=== PATIENT | male | born 1965 | race Caucasian/White ===

== ENCOUNTER 2016-10-19 10:12 | Observation (INO) | payer BC ==
[2016-10-19] MEDS ORDERED: diPHENhydraMINE PO* 25 MG ONE (10:55)
[2016-10-19] MEDS ORDERED: Diazepam TAB(*) 5 MG ONE (10:55)
[2016-10-19] MEDS ORDERED: fentaNYL* 50 MCG/ML 2 ML VIAL (100 MCG VIAL) ONE (10:59)
[2016-10-19] MEDS ORDERED: Midazolam* 1 MG/ML 5 ML VIAL (5 MG) ONE (11:00)
[2016-10-19] MEDS ORDERED: Heparin 2 UNITS/ML IVPREMIX* 3,000 ML IV ONE (11:00)
[2016-10-19] MEDS ORDERED: Lidocaine 1% INJ* 10 MG/ML 30 ML SDV ONE (11:01)
[2016-10-19] MEDS ORDERED: Iohexol 350 (CONTRAST) 200 ML MDV IV ONE (11:01)
[2016-10-19] MEDS ORDERED: Heparin 2 UNITS/ML IVPREMIX* 1,000 ML IV ONE (11:51)
[2016-10-19] MEDS ORDERED: Bivalirudin(*) 250 MG VIAL ONE (12:00)
[2016-10-19] MEDS ORDERED: nitroGLYCERIN DRIP* 250 ML ONE (12:00)
[2016-10-19] MEDS ORDERED: Nitroglycerin TAB 0.4 MG* 0.4 MG TAB SL PRN (12:54)
[2016-10-19] MEDS ORDERED: NS 0.9% 1000 ML* 1,000 ML IV SCH (13:00)
[2016-10-19] MEDS ORDERED: Ondansetron INJ* 2 MG/ML VIAL IV PRN (13:04)
[2016-10-19] MEDS ORDERED: oxyCODONE/Acetamin 5/325 MG* TAB PO PRN (13:04)
[2016-10-19] MEDS ORDERED: Docusate CAP* 100 MG PO PRN (13:04)
[2016-10-19] MEDS ORDERED: Zolpidem TAB* 5 MG PO PRN (13:04)
[2016-10-19] MEDS ORDERED: Acetaminophen TAB* 325 MG PO PRN (13:04)
[2016-10-19] MEDS ORDERED: ALPRAZolam TAB* 0.25 MG PO PRN (13:09)
[2016-10-19] MEDS: fentaNYL* 50 MCG/ML 2 ML VIAL (100 MCG VIAL) IV PRN ×2 (19:05→20:45)
[2016-10-19] MEDS: Ticagrelor* 90 MG TAB PO SCH (20:44)
[2016-10-19] MEDS ORDERED: Metoprolol Succinate XL TAB* 50 MG PO SCH (21:00)
[2016-10-19] MEDS ORDERED: Atorvastatin* 40 MG TAB PO SCH (21:00)
[2016-10-19] MEDS ORDERED: Isosorbide Mononitrate ER TAB* 30 MG PO SCH (21:00)
[2016-10-20 04:19] LABS: Hematocrit 43 % (42-52); Hemoglobin 14.6 g/dl (14.0-18.0); Mean Corpuscular HGB Conc 34 g/dl (31-36); Mean Corpuscular Hemoglobin 31 pg (27-31); Mean Corpuscular Volume 91 fL (80-94); Mean Platelet Volume 9 um3 (7.4-10.4); Red Blood Count 4.77 10^6/ul (4.0-5.4); Red Cell Distribution Width 13 % (10.5-15); White Blood Count 9.2 10^3/ul (3.5-10.8)
[2016-10-20 04:32] LABS: Albumin 3.9 g/dL (3.2-5.2); BUN/Creatinine Ratio 13.5 (8-20); Calcium 9.2 mg/dL (8.6-10.3); EGFR African American 105.8 (>60); EGFR Non-African American 82.3 (>60); Globulin 2.3 g/dL (2-4); Total Bilirubin 1.1 mg/dL (0.2-1.0); Total Protein 6.2 g/dL (6.4-8.9)
[2016-10-20] MEDS ORDERED: Atorvastatin* 80 MG TAB ONE (08:38)
[2016-10-20] MEDS: Ticagrelor* 90 MG TAB PO SCH (08:43)
--- NOTE | 2016-10-20 08:49 | ECHO ---
Patient: RASTA SOLIZ [facility] Rec#: [id number] : 1965 Date: 10/20/2016 Age: 50y Height: 177.8 cm / 70.0 in Weight: 95.25 kg / 209.9 lbs Sex: M BSA: 2.13 Room#: [facility] Admit Date#: 10/18/2016 Type: Inpatient Referring: Desmond Rangel MD Reading: Desmond Rangel MD Copying Machine Repairer: Christie Humphrey RDCS CC: Ervin Moreno MD Transthoracic Echocardiogram Indication: CAD BP: 93/53 HR: 75 Rhythm: Bradycardia Findings History: S/P PCI 10/18/16,former smoker,angina. Technical Comments: The study quality is good. Completed at 0825. Left Ventricle: The left ventricular chamber size is normal. Global left ventricular wall motion and contractility are within normal limits. There is normal left ventricular systolic function. The estimated ejection fraction is 60-65%. Normal left ventricular diastolic filling is observed. Left Atrium: The left atrium is slightly dilated. Right Ventricle: The right ventricular cavity size is normal. The right ventricular global systolic function is normal. Right Atrium: The right atrium is slightly dilated. Aortic Valve: The aortic valve is trileaflet. There is no evidence of aortic valve thickening. There is no evidence of aortic regurgitation. There is no evidence of aortic stenosis. Mitral Valve: The mitral valve leaflets are mildly thickened. There is a trace of mitral regurgitation. There is no evidence of mitral stenosis. Tricuspid Valve: The tricuspid valve leaflets are normal. There is no evidence of tricuspid valve regurgitation. There is no tricuspid stenosis. Pulmonic Valve: The pulmonic valve appears normal. There is no evidence of pulmonic regurgitation. There is no pulmonic stenosis. Pericardium: The pericardium appears normal. Aorta: There is mild dilatation of the ascending aorta. There is no dilatation of the aortic arch. There is no dilation of the aortic root. Pulmonary Artery: The main pulmonary artery appears normal. Venous: The inferior vena cava appears normal in size. There is a greater than 50% respiratory change in the inferior vena cava dimension. Conclusions There is normal left ventricular systolic function. The estimated ejection fraction is 60-65%. Normal left ventricular diastolic filling is observed. There is a trace of mitral regurgitation. There is mild dilatation of the ascending aorta. No reports of prior studies offered for comparison Measurements Name Value Normal Range RVIDd (AP) 2D 3.3 cm (0.9 - 2.6) RVDdMajor (2D) 3.8 cm (2.2 - 4.4) RAd ISD 4CH 5.2 cm (3.4 - 4.9) RA (A4C)W 4.4 cm (2.9 - 4.6) IVSd (2D) 1.1 cm (0.6 - 1) LVPWd (2D) 1 cm (0.6 - 1) LVIDd (2D) 5 cm (3.6 - 5.4) LVIDs (2D) 3.5 cm - LV FS (2D) 30 % (25 - 45) Aortic Annulus 2 cm (1.4 - 2.6) Ao root diameter (2D) 3.4 cm (2.1 - 3.5) Ascending Ao 3.6 cm (2.1 - 3.4) Aortic arch 3.4 cm (1.8 - 3.4) Descending Ao 0.5 cm - LA dimension (AP) 2D 4 cm (2.3 - 3.8) LAd ISD 4CH 5.3 cm (2.9 - 5.3) LA ISD 4CH W 4 cm (2.5 - 4.5) Name Value Normal Range LA ESV SP 4CH (A/L) 43 ml - LA ESV SP 2CH (A/L) 52 ml - LA ESV BP (A/L) 47 ml - LA ESV BP (A/L) index 22.27 ml/m2 - LA ESV SP 4CH (MOD) 39 ml - LA ESV SP 2CH (MOD) 50 ml - Name Value Normal Range MV E-wave Vmax 0.7 m/sec - MV deceleration time 242 msec - MV A-wave Vmax 0.6 m/sec - MV E:A ratio 1.11 ratio - LV septal e' Vmax 0.07 m/sec - LV lateral e' Vmax 0.13 m/sec - LV E:e' septal ratio 5.38 ratio - LV E:e' lateral ratio 10 ratio - Name Value Normal Range AV Vmax 1.8 m/sec - AV VTI 36.3 cm - AV peak gradient 13.68 mmHg - AV mean gradient 6.12 mmHg - LVOT Vmax 1.5 m/sec - LVOT VTI 32.5 cm - LVOT peak gradient 9.58 mmHg - LVOT mean gradient 3.77 mmHg - Name Value Normal Range IVC diameter 1.7 cm - Name Value Normal Range PV Vmax 1.2 m/sec - PV peak gradient 5.34 mmHg -
[2016-10-20] MEDS ORDERED: amLODIPine TAB* 5 MG PO SCH (09:00)
[2016-10-20] MEDS ORDERED: Aspirin EC Low Dose* 81 MG TAB.EC PO SCH (09:00)
[2016-10-20 09:07] VITALS: BP 117/76
--- NOTE | 2016-10-20 22:57 | CATH ---
CC: Ervin Moreno MD CARDIAC CATHETERIZATION AND INTERVENTIONAL REPORT: DATE OF PROCEDURE: 10/19/16 INDICATION FOR THE PROCEDURE: The patient with a staged intervention into the left anterior descending artery with the presence of significant stenotic coronary artery disease following reconstitution of totally occluded right coronary artery at [facility]. PROCEDURE: The procedure was coronary arteriography, balloon angioplasty and placement of a 3.5 x 28 mm long Synergy drug-eluting stent postdilated proximally to 3.6 to 3.7 cm. PROCEDURE IN DETAIL: The patient was interviewed and examined in the office where the risks and benefits were again explained to him of the procedure, he understood them and wished to proceed. He was brought to the cardiovascular laboratory, where a formal time-out was performed. The patient was prepped and draped in sterile fashion. The decision was made to try to use the left groin area as he had the right radial artery and the right femoral artery accessed multiple times in the past. The left groin area was anesthetized with 1% lidocaine. The left femoral artery was cannulated and because of marked tortuosity, the decision was made to place a 7-Peruvian super arrow-flex sheath. Coronary arteriography was then performed utilizing a 5-Peruvian 4 curve right coronary catheter. Of note, attempts were then made to try to advance a VL 3.5 curve 6-Peruvian guide catheter as well as 6-Peruvian FL4 curve guide catheter. Because of the marked tortuosity, catheter advancement through the sheath was met with significant difficulty and as such, the decision was made to abort attempting the left femoral artery approach. The right femoral artery area was anesthetized with 1% lidocaine. The right femoral artery was cannulated and a 6.5 sheath was placed. Guiding views were then obtained utilizing the VL 3.5 curve guide catheter. The decision was then made to intervene into the left anterior descending artery. The patient received an Angiomax bolus. He already had aspirin and Brilinta. Angiomax drip was started. A 0.014 All Star wire was advanced down the left anterior descending artery and balloon angioplasty was performed to the distal lesion with a 2.5 x 12 mm long NC Emerge balloon and the proximal lesion with a 3.25 x 12 mm long Emerge balloon. Following this , the 3.5 x 28 mm stent was deployed with postdeployment inflations to the proximal and mid portion made with a 3.5 x 12 mm Long NC Emerge balloon. Following this, the artery was assessed for result in multiple views. Following this, an injection was made into the right femoral sheath to assess eligibility to utilize the closure device, it was found to be acceptable for this and as such, a 6/7-Peruvian Mynx closure device was deployed with good hemostasis. The left femoral artery sheath was sutured in place to be removed manually in the intensive care unit. The total contrast used was 125 cc of Omnipaque dye. The radiation exposure included 12.3 minutes of fluoro time. The air kerma radiation was 970 milligray. The DAP radiation was 5895 microgray per sq. m. RESULTS: CORONARY ARTERIOGRAPHY: A. Right coronary artery - the right coronary artery was widely patent. Of note, there was area of ulceration seen in its mid portion with a degree of luminal reduction approximately 35%. The distal portion of right coronary artery showed no significant stenosis. B. Left coronary artery - 1. Left main - widely patent. 2. Left anterior descending artery. There was an eccentric lesion seen in the mid portion of left anterior descending artery after the first diagonal branch and first septal filenet p8 developer with haze are noted. In its worst view, this lesion appeared to be as tight as 85% to 90%. Past this point was a second lesion at the second septal filenet p8 developer that appeared to be approximately 70% in its worst view. 3. Circumflex artery - a nondominant vessel supplying multiple obtuse marginal branches. There was a mid lesion of approximately 35% to 40% noted. INTERVENTION INTO MID LEFT ANTERIOR DESCENDING ARTERY: Successful reduction of both 70% mid lesion and more proximal 85% to 90% lesion with balloon angioplasty and placement of a 3.5 x 28 mm long Synergy drug -eluting stent postdilated to 3.6 to 3.7 mm proximally with 0% residual stenosis , CHANI-3 flow and no dissection seen. OVERALL ASSESSMENT: Successful intervention into mid left anterior descending artery as described above. Dual antiplatelet therapy will be continued for a minimum of 30 months given the fact that the patient has had intervention into a chronically totally occluded right coronary artery. Of note, I will review these right coronary artery images with Dr. Felix from [facility] who performed the procedure. Continued aggressive statin therapy will be pursued with increasing the atorvastatin to 80 mg a day. The patient already does not smoke and exercises routinely and his blood pressure is in control. [id number]/[facility] #: [id number] MTDD
== END 2016-10-20 09:15 | disposition home or self-care (01) ==
LOC: CHICATH 10:12 → ICU 13:16
PROVIDERS: ADMIT Internal Medicine Cardiovascular Disease; ATTEND Internal Medicine Cardiovascular Disease
DX: I25.119 Atherosclerotic heart disease of native coronary artery with unspecified angina pectoris (principal); I25.82 Chronic total occlusion of coronary artery; E78.5 Hyperlipidemia, unspecified; I10 Essential (primary) hypertension; F41.9 Anxiety disorder, unspecified; R00.1 Bradycardia, unspecified; Z87.891 Personal history of nicotine dependence; Z88.0 Allergy status to penicillin
CPT/HCPCS: 36415; 80053; 85025; 87641; 93005; 93306; 93454; 96361; 96374; A9270-GY; C1725; C1760; C1769; C1876; C1887; C9600-LD; G0378; J1644; J2001; J2250; J3010

== ENCOUNTER 2016-10-20 09:51 | Emergency (ER) | payer BC ==
[2016-10-20] MEDS ORDERED: ALPRAZolam TAB* 0.25 MG PO ONE (13:00)
[2016-10-20] MEDS ORDERED: fentaNYL* 50 MCG/ML 2 ML VIAL (100 MCG VIAL) IV SLOW PU PRN (13:01)
[2016-10-20] MEDS ORDERED: fentaNYL* 50 MCG/ML 2 ML VIAL (100 MCG VIAL) ONE (13:11)
[2016-10-20 15:22] VITALS: BP 131/78
--- NOTE | 2016-10-20 18:46 | ED ---
Brent Sosa Billy, scribed for Gopal Lou MD on 10/20/16 at 1109 . Complex/Multi-Sys Presentation - HPI Summary HPI Summary: Patient is a 50 year-old male coming to the ED for evaluation of bleeding from the right-side of his groin after a cardiac catheterization procedure yesterday. He was only recently discharged from [facility] one hour prior to arrival in the ED. He states that he saw blood through his pants and decided to return to the hospital. The bleeding is controlled with direct, applied pressure. He has no other complaints at this time. - History Of Current Complaint Chief Complaint: EDGeneral Time Seen by Provider: 10/20/16 10:28 Hx Obtained From: Patient Onset/Duration: Gradual Onset, Lasting Minutes, Still Present Timing: Constant Severity Currently: Moderate Severity Initially: Moderate Location: Negative Aggravating Factor(s): none Alleviating Factor(s): applied pressure - Allergies/Home Medications Allergies/Adverse Reactions: Allergies Allergy/AdvReac Type Severity Reaction Status Date / Time Penicillins Allergy Unknown Verified 06/23/16 10:59 Reaction Details PMH/Surg Hx/FS Hx/Imm Hx Cardiovascular History: Reports: Hx Angioplasty, Hx Hypercholesterolemia, Hx Hypertension Respiratory History: Reports: Other Respiratory Problems/Disorders - former smoker Musculoskeletal History: Reports: Hx Back Problems Sensory History: Reports: Hx Contacts or Glasses Denies: Hx Hearing Aid Opthamlomology History: Reports: Hx Contacts or Glasses - Surgical History Surgery Procedure, Year, and Place: hemmroids, cardiac cath, back and nose surgery Hx Anesthesia Reactions: No Infectious Disease History: No Infectious Disease History: Denies: Traveled Outside the in Last 30 Days - Family History Known Family History: Positive: Cardiac Disease - both grandfathers, Diabetes - grandfather - Social History Alcohol Use: None Hx Substance Use: Yes Substance Use Type: Reports: Marijuana Hx Tobacco Use: No Smoking Status (MU): Former Smoker Review of Systems Negative: Fever Positive: Other - bleeding from the groin All Other Systems Reviewed And Are Negative: Yes Physical Exam Triage Information Reviewed: Yes Vital Signs On Initial Exam: Initial Vitals Temp Pulse Resp BP Pulse Ox 97.8 F 70 16 127/70 97 10/20/16 09:56 10/20/16 09:56 10/20/16 09:56 10/20/16 09:56 10/20/16 09:56 Vital Signs Reviewed: Yes Appearance: Positive: Well-Appearing, No Pain Distress Skin: Positive: Warm, Skin Color Reflects Adequate Perfusion, Dry Head/Face: Positive: Normal Head/Face Inspection Eyes: Positive: Normal ENT: Positive: Normal ENT inspection Neck: Positive: Supple, Nontender Respiratory/Lung Sounds: Positive: Clear to Auscultation, Breath Sounds Present Cardiovascular: Positive: RRR Abdomen Description: Positive: Nontender, Soft, Other: - The patient is currently applying weight onto the right-side of his groin, the bleeding is controlled. Musculoskeletal: Positive: Normal Neurological: Positive: Normal, Sensory/Motor Intact, Alert, Oriented to Person Place, Time Psychiatric: Positive: Affect/Mood Appropriate Diagnostics - Vital Signs Vital Signs Temp Pulse Resp BP Pulse Ox 10/20/16 10:30 62 133/75 96 10/20/16 10:20 61 96 10/20/16 10:19 124/78 10/20/16 10:17 97.8 F 63 16 124/78 96 10/20/16 09:56 97.6 F 70 16 127/70 97 - Laboratory Lab Statement: Any lab studies that have been ordered have been reviewed, and results considered in the medical decision making process. Complex Multi-Symp Course/Dx Course Of Treatment: Mr. Pandya was kept with a weight on his right groin and seen by Dr. Rivera who decided to readmit him. - Diagnoses Provider Diagnoses: Post-op bleeding Discharge - Discharge Plan Condition: Good Disposition: HOME Referrals: Ervin Moreno MD [Primary Care Provider] - Desmond Rangel MD [Medical Doctor] - 10/25/16 1:20 pm (Keep follow up appt. with Dr. Rangel on 10/25/2016 at 1:20 pm) Additional Instructions: SLowly increase activity as instructed. The documentation as recorded by the Brent melendez Billy accurately reflects the service I personally performed and the decisions made by me, Gopal Lou MD.
--- NOTE | 2016-10-21 01:58 | ED ---
EMERGENCY ROOM NOTE: DATE OF SERVICE: 10/20/16 HISTORY: Mr. Pandya came back to the emergency room within an hour to an hour and a half after discharge from the intensive care unit. Of note, we had asked him to get up and about, have breakfast to make sure he is stable. He insisted on getting out of the hospital after his percutaneous coronary intervention yesterday. When I examined him in the intensive care unit, both groin areas looked well healed. There was no active bleeding going on. The nurse did not report any bleeding prior to him going home after she changed the dressings. He came back with bleeding in the right groin area. We assessed it. There was not bright red blood bleeding. We performed a manual pressure to the area and we will put a sandbag on it for the next 4 hours and re-assess it in 4 hours from now. Of note, his vital signs are stable with a blood pressure of 124/78, pulse of 63, and excellent oxygenation on room air. His distal pulses were intact.He initially remained in the emergency room and eventually was brought up to [facility] for continued monitoring. He was eventually up and about and discharged home in stable condition after walking in [facility]. He will have follow up with me in 5 days to reassess the wound sites. [id number]/[facility] #: [id number] JOHNSON
== END 2016-10-20 13:16 | disposition home or self-care (01) ==
LOC: ED 09:51
DX: L76.22 Postprocedural hemorrhage of skin and subcutaneous tissue following other procedure (principal); Z98.890 Other specified postprocedural states
CPT/HCPCS: 99282; A9270-GY; J3010

== ENCOUNTER 2017-03-04 13:56 | Emergency (ER) | payer BC ==
[2017-03-04 16:08] VITALS: BP 108/78
--- NOTE | 2017-03-04 18:00 | ED ---
Upper Extremity Pain - HPI Summary HPI Summary: R HAND THUMB LACERATION. PT CUT THUMB ON FILM RENTAL CLERK BLADE. PT STATES UP TO DATE ON TETANUS. BLEEDING IS CONTROLLED AT ARRIVAL. DENIES NUMBNESS, TINGLING , COLOR OR TEMPERATURE CHANGES TO THE AREA. HE STATES HE WAS CONCERNED ABOUT THE BLEEDING SINCE HE WAS UNABLE TO GET IT TO STOP PRIOR TO ARRIVAL. DENIES MEDICATIONS AND OTHERWISE HEALTHY. HE DENIES OTHER INJURY. LACERATION IS .3CM IN LENGTH AND OVERLYING THE DORSUM OF THE RIGHT THUMB. - History of Current Complaint Chief Complaint: EDLacSutureRecheck Stated Complaint: RT HAND/FINGER LAC Time Seen by Provider: 03/04/17 15:01 Hx Obtained From: Patient Mechanism Of Injury: Unknown - BLADE Onset/Duration: Started Minutes Ago Timing: Constant Severity Initially: Moderate Severity Currently: Moderate Pain Location: Finger Character: Aching Aggravating Factor(s): Nothing Alleviating Factor(s): Nothing Associated Signs & Symptoms: Positive: Negative Related History: Dominant Hand Right - Allergies/Home Medications Allergies/Adverse Reactions: Allergies Allergy/AdvReac Type Severity Reaction Status Date / Time Penicillins Allergy Unknown Verified 03/04/17 14:02 Reaction Details PMH/Surg Hx/FS Hx/Imm Hx Previously Healthy: Yes Cardiovascular History: Reports: Hx Angioplasty, Hx Hypercholesterolemia, Hx Hypertension Respiratory History: Reports: Other Respiratory Problems/Disorders - former smoker Musculoskeletal History: Reports: Hx Back Problems Sensory History: Reports: Hx Contacts or Glasses Denies: Hx Hearing Aid Opthamlomology History: Reports: Hx Contacts or Glasses - Surgical History Surgery Procedure, Year, and Place: hemmroids, cardiac cath, back and nose surgery Hx Anesthesia Reactions: No - Immunization History Hx Pertussis Vaccination: No Immunizations Up to Date: Unable to Obtain/Confirm Infectious Disease History: No Infectious Disease History: Denies: Traveled Outside the [place] in Last 30 Days - Family History Known Family History: Positive: Cardiac Disease - both grandfathers, Diabetes - grandfather - Social History Occupation: Employed Full-time Lives: With Family Alcohol Use: None Hx Substance Use: Yes Substance Use Type: Reports: Marijuana Hx Tobacco Use: No Smoking Status (MU): Former Smoker Review of Systems Constitutional: Negative Eyes: Negative Respiratory: Negative Gastrointestinal: Negative Positive: no symptoms reported, see HPI Musculoskeletal: Negative Skin: Negative Neurological: Negative All Other Systems Reviewed And Are Negative: Yes Physical Exam Triage Information Reviewed: Yes Vital Signs On Initial Exam: Initial Vitals Temp Pulse Resp BP Pulse Ox 98.2 F 60 15 140/83 100 03/04/17 13:57 03/04/17 13:57 03/04/17 13:57 03/04/17 13:57 03/04/17 13:57 Vital Signs Reviewed: Yes Appearance: Positive: Well-Appearing, Well-Nourished Skin: Positive: Warm, Other - .3 CM LACERATION TO THE RIGHT THUUMB, SUPERFICIAL Head/Face: Positive: Normal Head/Face Inspection Eyes: Positive: EOMI, NOHELIA Neck: Positive: Supple, No Lymphadenopathy Respiratory/Lung Sounds: Positive: Clear to Auscultation Cardiovascular: Positive: RRR, Pulses are Symmetrical in both Upper and Lower Extremities Musculoskeletal: Positive: Normal, Strength/ROM Intact Neurological: Positive: Speech Normal Psychiatric: Positive: Normal AVPU Assessment: Alert Diagnostics - Vital Signs Vital Signs Temp Pulse Resp BP Pulse Ox 03/04/17 16:00 97.1 F 64 18 108/78 03/04/17 13:57 98.2 F 60 15 140/83 100 - Laboratory Lab Statement: Any lab studies that have been ordered have been reviewed, and results considered in the medical decision making process. Course/Dx - Course Course Of Treatment: THE AREA WAS CLEANED AND STERI STRIPS APPLIED. COMPRESSION DRESSING APPLIED AND CARE INSTRUCTIONS GIVEN. PATIENT IS OK WITH PLAN AND DISCHARGE. UP TO DATE ON TETANUS. - Diagnoses Differential Diagnosis/HQI/PQRI: Positive: Contusion, Laceration Provider Diagnoses: Laceration Discharge - Discharge Plan Condition: Stable Disposition: HOME Patient Education Materials: Steristrips (ED) Referrals: Ervin Moreno MD [Primary Care Provider] - Additional Instructions: Follow up as needed Steri strips over the area for 3-4 days Keep bandaid over the area and change out after showers
== END 2017-03-04 16:07 | disposition home or self-care (01) ==
LOC: ED 13:56
DX: S61.011A Laceration without foreign body of right thumb without damage to nail, initial encounter (principal); I10 Essential (primary) hypertension; E78.00 Pure hypercholesterolemia, unspecified; Z87.891 Personal history of nicotine dependence; Z88.0 Allergy status to penicillin; W29.0XXA Contact with powered kitchen appliance, initial encounter; Y92.9 Unspecified place or not applicable
CPT/HCPCS: 99282

== ENCOUNTER 2019-09-19 04:39 | Emergency (ER) | payer BC ==
[2019-09-19] MEDS ORDERED: Tetan/Diph/Pertus SYR(Tdap)* 0.5 ML SYR(BOOSTRIX) use SYR contains LATEX IM ONE (05:47)
[2019-09-19 06:06] VITALS: BP 137/92
--- NOTE | 2019-09-19 07:29 | ED ---
Skin Complaint - HPI Summary HPI Summary: Pt presents to the ED with concern for bleeding at the puncture wound site to the left temporal tip of the index finger. Patient states this occurred around 4 PM last evening. States bleeding was well controlled until this morning. He opened the bandage, and the area started to bleed again. Denies any pain. Denies any limitations of ROM. No color changes. Tetanus UTD. - History of Current Complaint Chief Complaint: EDLacSutureRecheck Time Seen by Provider: 09/19/19 05:36 Stated Complaint: L HAND FINGER INJURY PER PT Hx Obtained From: Patient Onset/Duration: Started Hours Ago Skin Exposure Onset/Duration: Hours Ago Timing: Constant Onset Severity: Mild Current Severity: None Pain Intensity: 0 Pain Scale Used: 0-10 Numeric Skin Location: Other: - left index finger Aggravating Symptom(s): Nothing Associated Signs & Symptoms: Negative - Allergy/Home Medications Allergies/Adverse Reactions: Allergies Allergy/AdvReac Type Severity Reaction Status Date / Time Penicillins Allergy Unknown Verified 09/19/19 04:41 Reaction Details Home Medications: Home Medications Aspirin EC TAB* [Ecotrin EC Low Dose 81 MG*] 81 mg PO DAILY 07/12/16 [History Confirmed 09/19/19] ALPRAZolam TAB* [Xanax TAB*] 0.25 mg PO BID PRN 10/18/16 [History Confirmed ] Amlodipine Besylate [Norvasc 5 mg tab] 5 mg PO DAILY 10/18/16 [History Confirmed 09/19/19] Atorvastatin* [Lipitor 40 MG*] 40 mg PO DAILY 10/18/16 [History Confirmed ] Isosorbide Mononitrate ER TAB* [Imdur ER TAB*] 30 mg PO DAILY 10/18/16 [History Confirmed 09/19/19] Metoprolol Succinate [Toprol Xl] 50 mg PO DAILY 10/18/16 [History Confirmed ] Nitroglycerin TAB 0.4 MG* 0.4 mg SL Q5M PRN 10/20/16 [History Confirmed 09/19/19 ] PMH/Surg Hx/FS Hx/Imm Hx Previously Healthy: Yes Cardiovascular History: Reports: Hx Angioplasty, Hx Hypercholesterolemia, Hx Hypertension Respiratory History: Reports: Other Respiratory Problems/Disorders - former smoker Musculoskeletal History: Reports: Hx Back Problems Sensory History: Reports: Hx Contacts or Glasses Denies: Hx Hearing Aid Opthamlomology History: Reports: Hx Contacts or Glasses - Surgical History Surgery Procedure, Year, and Place: hemmroids, cardiac cath, back and nose surgery Hx Anesthesia Reactions: No - Immunization History Hx Pertussis Vaccination: No Immunizations Up to Date: Yes Infectious Disease History: No Infectious Disease History: Denies: Traveled Outside the [place] in Last 30 Days - Family History Known Family History: Positive: Cardiac Disease - both grandfathers, Diabetes - grandfather - Social History Occupation: Unemployed Lives: With Family Alcohol Use: None Hx Substance Use: Yes Substance Use Type: Reports: Marijuana Hx Tobacco Use: No Smoking Status (MU): Former Smoker Review of Systems Negative: Fever, Chills, Fatigue, Skin Diaphoresis Negative: Palpitations, Chest Pain Genitourinary: Negative Positive: no symptoms reported, see HPI Negative: Arthralgia, Myalgia Positive: Other - puncture wound ot the L index finger All Other Systems Reviewed And Are Negative: Yes Physical Exam Triage Information Reviewed: Yes Vital Signs On Initial Exam: Initial Vitals Temp Pulse Resp BP Pulse Ox 97.6 F 71 18 140/97 97 09/19/19 04:41 09/19/19 04:41 09/19/19 04:41 09/19/19 04:41 09/19/19 04:41 Vital Signs Reviewed: Yes Appearance: Positive: Well-Appearing, Well-Nourished Skin: Positive: Warm, Skin Color Reflects Adequate Perfusion, Other - left index finger puncture wound Head/Face: Positive: Normal Head/Face Inspection Eyes: Positive: EOMI, NOHELIA, Conjunctiva Clear Neck: Positive: Supple, No Lymphadenopathy Respiratory/Lung Sounds: Positive: Clear to Auscultation, Breath Sounds Present Cardiovascular: Positive: RRR, Pulses are Symmetrical in both Upper and Lower Extremities Musculoskeletal: Positive: Strength/ROM Intact Neurological: Positive: Speech Normal Psychiatric: Positive: Affect/Mood Appropriate Procedures - Sedation Patient Received Moderate/Deep Sedation with Procedure: No Diagnostics - Vital Signs Vital Signs Temp Pulse Resp BP Pulse Ox 09/19/19 06:04 97.9 F 59 16 137/92 95 09/19/19 06:00 57 96 09/19/19 05:49 58 137/92 95 09/19/19 05:19 57 135/91 96 09/19/19 05:00 67 96 09/19/19 04:49 63 139/91 95 09/19/19 04:41 97.6 F 71 18 140/97 97 - Laboratory Lab Statement: Any lab studies that have been ordered have been reviewed, and results considered in the medical decision making process. Course/Dx - Course Course Of Treatment: Bleeding is controlled on arrival. Small 0.3cm puncture wound to the radial side of the distal tip of the L index finger. Cleansed wound thoroughly. Tetanus UTD. Denies pain. No limitations of ROM. Good skin turgor, color, cap refill, pulses +2. Gauze wrapped. Patient OK for DC with puncture wound. - Diagnoses Provider Diagnoses: Puncture wound Discharge ED - Sign-Out/Discharge Documenting (check all that apply): Patient Departure - Discharge Plan Condition: Good Disposition: HOME Referrals: Ervin Moreno MD [Primary Care Provider] - Additional Instructions: Keep the bandage applied for today You may take off the bandage this evening and shower - then replace with other bandage - Billing Disposition and Condition Condition: GOOD Disposition: Home
== END 2019-09-19 06:04 | disposition home or self-care (01) ==
LOC: ED 04:39
DX: S61.231A Puncture wound without foreign body of left index finger without damage to nail, initial encounter (principal); W29.8XXA Contact with other powered hand tools and household machinery, initial encounter; Y92.9 Unspecified place or not applicable; E78.00 Pure hypercholesterolemia, unspecified; I10 Essential (primary) hypertension; Z98.61 Coronary angioplasty status; Z87.891 Personal history of nicotine dependence; Z88.0 Allergy status to penicillin; Z79.82 Long term (current) use of aspirin; Z79.899 Other long term (current) drug therapy
CPT/HCPCS: 99282